=== PATIENT | male | born 1955 | race Two or more races ===

== ENCOUNTER → 2018-03-08 | Emergency (ER) | payer OTHER ==
[~2018-03-08] VITALS: Ht 180.3 cm; Wt 77.1 kg
[~2018-03-08] MED LIST: ASPIR 8181 MG; OMEGA 3 500 SO1 EACH; TRAMADOL HCL50 MG
== END | disposition home or self-care (01) ==
LOC: ER 19:45
DX: R42 Dizziness and giddiness (principal)

== ENCOUNTER 2018-03-14 09:37 | Outpatient (CLI) | payer OTHER | END 2018-03-14 09:53 | disposition home or self-care (01) | LOC: NUCLEAR 09:37 | DX: I63.511 Cerebral infarction due to unspecified occlusion or stenosis of right middle cerebral artery (principal); R94.31 Abnormal electrocardiogram [ECG] [EKG] ==

== ENCOUNTER → 2018-04-07 | Emergency (ER) | payer OTHER ==
[~2018-04-07] VITALS: Ht 180.3 cm; Wt 77.1 kg
[~2018-04-07] MED LIST changes: +AMBIEN CR12.5 MG PO
== END | disposition home or self-care (01) ==
LOC: ER 17:09
DX: H53.8 Other visual disturbances (principal)

== ENCOUNTER 2018-04-24 09:44 | Outpatient (CLI) | payer OTHER | END 2018-04-24 09:55 | disposition home or self-care (01) | LOC: NUCLEAR 09:44 | DX: I70.233 Atherosclerosis of native arteries of right leg with ulceration of ankle (principal); R60.0 Localized edema ==

== ENCOUNTER 2018-04-25 09:25 | Outpatient (CLI) | payer OTHER | END 2018-04-25 09:34 | disposition home or self-care (01) | LOC: NUCLEAR 09:25 | DX: I87.2 Venous insufficiency (chronic) (peripheral) (principal); I70.223 Atherosclerosis of native arteries of extremities with rest pain, bilateral legs; R60.0 Localized edema ==

== ENCOUNTER 2021-04-01 11:47 | Emergency (ER) | payer OTHER ==
[~2021-04-01] VITALS: Ht 180.3 cm; Wt 68.5 kg
== END 2021-04-01 14:54 | disposition home or self-care (01) ==
LOC: ER 11:47
DX: M12.561 Traumatic arthropathy, right knee (principal); S82.141A Displaced bicondylar fracture of right tibia, initial encounter for closed fracture; W18.39XA Other fall on same level, initial encounter; Y93.89 Activity, other specified; Y92.89 Other specified places as the place of occurrence of the external cause; Y99.8 Other external cause status

== ENCOUNTER 2021-11-12 08:05 | Emergency (ER) | payer OTHER ==
[~2021-11-12] VITALS: Ht 180.3 cm; Wt 69.9 kg
[2021-11-12] MEDS ORDERED: HORIZANT300 MG PO (08:12)
== END 2021-11-12 10:49 | disposition home or self-care (01) ==
LOC: ER 08:05
DX: S43.492A Other sprain of left shoulder joint, initial encounter (principal); X58.XXXA Exposure to other specified factors, initial encounter; Y93.89 Activity, other specified; Y92.89 Other specified places as the place of occurrence of the external cause; M77.8 Other enthesopathies, not elsewhere classified